=== PATIENT | female | born 1940 | race Caucasian/White ===

== ENCOUNTER 2021-01-26 16:30 | Emergency (ER) | payer BC, MEDICARE, OTHER ==
--- NOTE | 2021-01-26 17:30 | EDM.PDOC ---
ED HPI GENERAL MEDICAL PROBLEM - General Chief Complaint: Lower Extremity Injury/Pain Stated Complaint: KNEE PAIN Time Seen by Provider: 01/26/21 16:45 Source of Information: Reports: Patient History Limitations: Reports: No Limitations - History of Present Illness INITIAL COMMENTS - FREE TEXT/NARRATIVE: The patient presents with right knee pain. She was out walking this afternoon and stepped over a puddle and had pain to her right knee. She cannot bend her right knee now without intense pain. She has no pain any where else. She has a history of some pain in her knee in the past but nothing like this. Onset: Sudden Duration: Minutes: Location: Reports: Lower Extremity, Right (knee) Quality: Reports: Sharp Severity: Moderate Improves with: Reports: Immobilization Worsens with: Reports: Movement Context: Denies: Trauma Associated Symptoms: Reports: No Other Symptoms Right Knee Pain Score (Numeric/FACES): 7 - Related Data Allergies Allergy/AdvReac Type Severity Reaction Status Date / Time No Known Allergies Allergy Verified 01/26/21 16:39 Past Medical History Cardiovascular History: Reports: High Cholesterol, Hypertension Musculoskeletal History: Reports: Fracture Endocrine/Metabolic History: Reports: Hypothyroidism - Past Surgical History HEENT Surgical History: Reports: Oral Surgery Social & Family History - Tobacco Use Tobacco Use Status *Q: Unknown Ever Used Tobacco Review of Systems - Review of Systems Review Of Systems: See Below Constitutional: Reports: No Symptoms Eyes: Reports: No Symptoms Ears: Reports: No Symptoms Nose: Reports: No Symptoms Mouth/Throat: Reports: No Symptoms Respiratory: Reports: No Symptoms Cardiovascular: Reports: No Symptoms GI/Abdominal: Reports: No Symptoms Genitourinary: Reports: No Symptoms Musculoskeletal: Reports: Other (Right knee pain with motion) ED EXAM, GENERAL - Physical Exam Exam: See Below Exam Limited By: No Limitations General Appearance: Alert, No Apparent Distress Ears: Normal External Exam Nose: Normal Inspection Head: Atraumatic, Normocephalic Neck: Normal Inspection Respiratory/Chest: No Respiratory Distress Extremities: Other (No pain upon palpation to the right knee. Good sensation and pulses distally.) Course - Vital Signs Last Recorded V/S: Last Vital Signs Temp 97.9 F 01/26/21 16:36 Pulse 78 01/26/21 16:36 Resp 18 01/26/21 16:36 BP 183/68 H 01/26/21 16:36 Pulse Ox 99 01/26/21 16:36 - Orders/Labs/Meds Orders: Active Orders 24 hr Category Date Time Status Knee 3V Rt [CR] Stat Exams 01/26/21 16:51 Taken Durable Medical Equipment for Discharge [DME for Oth 01/26/21 17:46 Ordered Discharge] [COMM] Stat - Re-Assessments/Exams Free Text/Narrative Re-Assessment/Exam: 01/26/21 17:46 Her x-ray looks good. It just shows some mild arthritis. I was able to stress her ligaments and there is no instability. When I did try to bend it, she had pain to the posterior knee and inside the knee. I am concerned she may have a meniscus problem. I will get her in a knee immobilizer and have her follow up with Dr Fishman. Departure - Departure Time of Disposition: 17:50 Disposition: Home, Self-Care 01 Condition: Good Clinical Impression: Right knee pain Qualifiers: Chronicity: acute Qualified Code(s): M25.561 - Pain in right knee Knee sprain Qualifiers: Encounter type: initial encounter Involved ligament of knee: unspecified ligament Laterality: right Qualified Code(s): S83.91XA - Sprain of unspecified site of right knee, initial encounter - Discharge Information *PRESCRIPTION DRUG MONITORING PROGRAM REVIEWED*: Not Applicable *COPY OF PRESCRIPTION DRUG MONITORING REPORT IN PATIENT TIFFAYN: Not Applicable Referrals: Edwardo Fishman MD [Physician] - 1 Week Forms: ED Department Discharge Additional Instructions: Ice your knee for 15 minutes 3 times per day for 2 days. Take tylenol or motrin as needed for pain. Wear the knee immobilizer for support and to avoid further injury. Follow up with Dr Fishman within a week. Please return if you are worse. Sepsis Event Note (ED) - Evaluation Sepsis Screening Result: No Definite Risk - Focused Exam Vital Signs: Vital Signs Temp Pulse Resp BP Pulse Ox 01/26/21 16:36 97.9 F 78 18 183/68 H 99 - My Orders Last 24 Hours: My Active Orders 01/26/21 16:51 Knee 3V Rt [CR] Stat 01/26/21 17:46 Durable Medical Equipment for Discharge [DME for Discharge] [COMM] Stat - Assessment/Plan Last 24 Hours: My Active Orders 01/26/21 16:51 Knee 3V Rt [CR] Stat 12/12/21 17:46 Durable Medical Equipment for Discharge [DME for Discharge] [COMM] Stat
--- NOTE | 2021-01-26 18:26 | CR ---
Right knee: AP, lateral and sunrise patellar views of the right knee were obtained. Comparison: No prior right knee study is available. Narrowing is seen within the medial patellofemoral joint. Minimal narrowing is seen within the lateral joint. Chondrocalcinosis is noted within the medial and lateral menisci. Small spur is noted off the superior patella at the insertion of the quadriceps tendon. Small bony density is noted off the anterior and proximal tibia on the lateral view which is well corticated and felt to represent a likely old injury. No acute fracture or dislocation is seen. Impression: 1. Degenerative change as noted above. 2. Small bony density off the anterior and proximal tibia which is felt to represent an old injury. 3. No acute abnormality is appreciated. Diagnostic code #2
== END 2021-01-26 18:40 | disposition home or self-care (01) ==
LOC: JD.ED 16:30
DX: S83.91XA Sprain of unspecified site of right knee, initial encounter (principal); I10 Essential (primary) hypertension; W22.8XXA Striking against or struck by other objects, initial encounter; Y93.01 Activity, walking, marching and hiking
CPT/HCPCS: 73562-26-RT; 73562-RT; 99283-25; 99285

== ENCOUNTER 2022-05-28 16:50 | Emergency (ER) | payer MEDICARE | END 2022-05-28 21:23 | disposition home or self-care (01) | LOC: JD.ED 16:50 | DX: R41.0 Disorientation, unspecified (principal); I10 Essential (primary) hypertension | CPT/HCPCS: 36415; 70450; 70450-26; 80053; 81001; 85025; 86140; 99284; 99285 ==

== ENCOUNTER 2022-05-29 03:02 | Emergency (ER) | payer MEDICARE | END 2022-05-29 04:15 | disposition home or self-care (01) | LOC: JD.ED 03:02 | DX: R53.1 Weakness (principal); I10 Essential (primary) hypertension | CPT/HCPCS: 36415; 83735; 99283; 99284 ==

== ENCOUNTER 2022-09-13 02:05 | Emergency (ER) | payer MEDICARE ==
[2022-09-13] MEDS ORDERED: Sodium Chloride 0.9% 1,000 ML IV SCH (02:30)
[2022-09-13] MEDS ORDERED: Iopamidol 612 MG/ML 100 ML Bottle IVPUSH ONE (02:45)
== END 2022-09-13 03:45 | disposition home or self-care (01) ==
LOC: JD.ED 02:05
DX: S22.41XA Multiple fractures of ribs, right side, initial encounter for closed fracture (principal); I10 Essential (primary) hypertension; R29.6 Repeated falls; W18.30XA Fall on same level, unspecified, initial encounter; Y92.129 Unspecified place in nursing home as the place of occurrence of the external cause
CPT/HCPCS: 74177; 99284; J7030; Q9967; 99283

== ENCOUNTER 2022-09-13 23:18 | Emergency (ER) | payer BC, MEDICARE ==
[2022-09-14] MEDS ORDERED: Sodium Chloride 0.9% 1,000 ML IV SCH (01:00)
[2022-09-14 01:14] LABS: BASOPHILS ABSOLUTE AUTO 0.04 K/mm3 (0.01-0.08); BASOPHILS PERCENT AUTO 0.4 % (0.1-1.2); EOSINOPHILS ABSOLUTE AUTO 0.04 K/mm3 (0.04-0.36); EOSINOPHILS PERCENT AUTO 0.4 (0.7-5.8); HEMATOCRIT 40.9 % (34.1-44.9); HEMOGLOBIN 13.7 gm/dl (11.2-15.7); IMMATURE GRAN ABSOLUTE AUTO 0.05 K/mm3 (0.00-0.10); IMMATURE GRAN PERCENT AUTO 0.5 % (<=1.0); LYMPHOCYTES ABSOLUTE AUTO 1.21 K/mm3 (1.18-3.74); LYMPHOCYTES PERCENT AUTO 12.1 % (19.3-51.7); MEAN CORPUSCULAR HEMOGLOBIN 29.7 pg (25.6-32.2); MEAN CORPUSCULAR HGB CONC 33.5 g/dl (32.2-35.5); MEAN CORPUSCULAR VOLUME 88.7 fl (79.4-94.8); MEAN PLATELET VOLUME 10.2 fl (9.4-12.3); NEUTROPHILS ABSOLUTE AUTO 8.13 K/mm3 (1.56-6.13); NEUTROPHILS PERCENT AUTO 81.6 % (34.0-71.1); PLATELET COUNT,PLT 198 K/mm3 (182-369); RED BLOOD CELL COUNT 4.61 M/mm3 (3.98-5.22); WHITE BLOOD CELL COUNT,WBC 9.97 K/mm3 (3.98-10.04)
[2022-09-14 01:33] LABS: SLIDE REVIEW NORMAL SMEAR
[2022-09-14 01:35] LABS: A/G RATIO 0.9 (1-2); ALBUMIN 3.7 g/dl (3.4-5.0); ANION GAP 14.1 (5-15); BILIRUBIN TOTAL 0.6 mg/dL (0.2-1.0); BUN/CREATININE RATIO 13.1 (14-18); CALCIUM 8.9 mg/dL (8.5-10.1); CREATININE 1.3 mg/dL (0.55-1.02); EST CRCL DRUG DOSING (CG) 26.39 mL/min; POTASSIUM,K 4.1 mEq/L (3.5-5.1); PROTEIN TOTAL,TP 7.7 g/dl (6.4-8.2)
[2022-09-14] MEDS ORDERED: Iopamidol 612 MG/ML 100 ML Bottle IVPUSH ONE (01:57)
== END 2022-09-14 03:00 | disposition home or self-care (01) ==
LOC: JD.ED 23:18
DX: M54.50 Low back pain, unspecified (principal); E78.00 Pure hypercholesterolemia, unspecified; I10 Essential (primary) hypertension; E03.9 Hypothyroidism, unspecified; Z79.82 Long term (current) use of aspirin; Z79.899 Other long term (current) drug therapy; W18.11XA Fall from or off toilet without subsequent striking against object, initial encounter; Y92.091 Bathroom in other non-institutional residence as the place of occurrence of the external cause
CPT/HCPCS: 36415; 74177; 80053; 85025; 99284; J7030; Q9967

== ENCOUNTER 2023-11-19 10:46 | Inpatient (IN) | payer MEDICARE ==
[2023-11-19 11:20] LABS: BASOPHILS PERCENT AUTO 0.4 % (0.0-1.0); EOSINOPHILS PERCENT AUTO 0.4 % (0.0-6.0); HEMATOCRIT 40.1 % (37.0-47.0); HEMOGLOBIN 13.8 gm/dl (12.0-16.0); IMMATURE GRAN ABSOLUTE AUTO 0.01 K/mm3 (0.00-0.05); IMMATURE GRAN PERCENT AUTO 0.1 % (0.0-0.4); LYMPHOCYTES ABSOLUTE AUTO 1.2 K/mm3 (1.0-4.8); MEAN CORPUSCULAR HEMOGLOBIN 30.1 pg (28.0-32.0); MEAN CORPUSCULAR HGB CONC 34.4 g/dl (32.0-36.0); MEAN CORPUSCULAR VOLUME 87.6 fl (83.0-99.0); MEAN PLATELET VOLUME 9.9 fl (9.4-12.3); MONOCYTES ABSOLUTE AUTO 0.6 K/mm3 (0.0-0.8); MONOCYTES PERCENT AUTO 6.8 % (0.0-8.0); NEUTROPHILS ABSOLUTE AUTO 6.4 K/mm3 (1.8-7.7); NEUTROPHILS PERCENT AUTO 77.3 % (41.0-71.0); PLATELET COUNT,PLT 166 K/mm3 (150-400); RED BLOOD CELL COUNT 4.58 M/mm3 (4.10-5.30); WHITE BLOOD CELL COUNT,WBC 8.22 K/mm3 (3.9-11.3)
[2023-11-19] MEDS: Sodium Chloride 0.9% 100 ML IV SCH (11:22)
[2023-11-19] MEDS: Iopamidol 755 Mg/ML 100 ML Bottle IVPUSH ONE (11:22)
[2023-11-19] MEDS: Sodium Chloride 0.9% 10 ML Syringe FLUSH ONE (11:23)
[2023-11-19 11:42] LABS: A/G RATIO 0.9 (1-2); ALBUMIN 3.6 g/dl (3.4-5.0); BILIRUBIN TOTAL 0.9 mg/dL (0.2-1.0); BUN/CREATININE RATIO 22.5 (14-18); CALCIUM 9.3 mg/dL (8.5-10.1); CREATININE 1.2 mg/dL (0.55-1.02); EST CRCL DRUG DOSING (CG) 26.8 mL/min; PROTEIN TOTAL,TP 7.7 g/dl (6.4-8.2)
[2023-11-19 12:01] LABS: INR 1.13; PROTHROMBIN TIME 11.9 SECONDS (9.7-12.0)
[2023-11-19 12:02] LABS: PTT,PARTIAL THROMBOPLSTIN TIME 27.1 SECONDS (21.7-31.4)
[2023-11-19] MEDS: Aspirin 325 MG Tab.EC PO ONE (12:54)
[2023-11-19 15:07] LABS: TSH 0.08 uIU/mL (0.358-3.74)
[2023-11-19 16:04] LABS: T4 FREE 1.56 ng/dL (0.76-1.46)
[2023-11-19] MEDS: Clopidogrel 75 MG Tab PO ONE (16:16)
[2023-11-19] MEDS: Polyethylene Glycol 3350 Powder 17 GM Packet PO SCH (22:38)
[2023-11-19] MEDS: Rosuvastatin 10 MG Tab PO SCH (22:38)
[2023-11-19] MEDS: Sodium Chloride 0.9% 1,000 ML IV SCH (22:38)
[2023-11-20 06:06] LABS: HEMATOCRIT 40.1 % (37.0-47.0); HEMOGLOBIN 13.6 gm/dl (12.0-16.0); MEAN CORPUSCULAR HEMOGLOBIN 29.2 pg (28.0-32.0); MEAN CORPUSCULAR HGB CONC 33.9 g/dl (32.0-36.0); MEAN CORPUSCULAR VOLUME 86.2 fl (83.0-99.0); MEAN PLATELET VOLUME 9.9 fl (9.4-12.3); PLATELET COUNT,PLT 159 K/mm3 (150-400); RED BLOOD CELL COUNT 4.65 M/mm3 (4.10-5.30); WHITE BLOOD CELL COUNT,WBC 7.69 K/mm3 (3.9-11.3)
[2023-11-20 06:27] LABS: ANION GAP 12.7 (5-15); CALCIUM 8.8 mg/dL (8.5-10.1); EST CRCL DRUG DOSING (CG) 32.16 mL/min; POTASSIUM,K 3.7 mEq/L (3.5-5.1)
[2023-11-20 07:58] LABS: HEMOGLOBIN A1C 6.2 %
[2023-11-20] MEDS: Aspirin 81 MG Tab.EC PO SCH (10:12)
[2023-11-20] MEDS: Enoxaparin 30 MG/0.3 ML Syringe SUBCUT SCH (10:12)
[2023-11-20] MEDS: Clopidogrel 75 MG Tab PO SCH (10:12)
[2023-11-20] MEDS: Sertraline 25 MG Tab PO SCH (10:12)
[2023-11-20] MEDS: Sodium Chloride 0.9% 1,000 ML IV SCH (12:57)
[2023-11-21 05:38] LABS: HEMATOCRIT 34.7 % (37.0-47.0); MEAN CORPUSCULAR HEMOGLOBIN 29.5 pg (28.0-32.0); MEAN CORPUSCULAR HGB CONC 33.1 g/dl (32.0-36.0); MEAN PLATELET VOLUME 10.2 fl (9.4-12.3); PLATELET COUNT,PLT 136 K/mm3 (150-400); WHITE BLOOD CELL COUNT,WBC 6.41 K/mm3 (3.9-11.3)
[2023-11-21 05:44] LABS: CREATININE 0.6 mg/dL (0.55-1.02); EST CRCL DRUG DOSING (CG) 53.61 mL/min
[2023-11-21] MEDS: Levothyroxine 75 MCG Tab PO SCH (05:49)
[2023-11-21 05:52] LABS: HEMOGLOBIN 11.5 gm/dl (12.0-16.0)
[2023-11-21 06:34] LABS: ANION GAP 11.8 (5-15)
[2023-11-21 06:48] LABS: CALCIUM 6.4 mg/dL (8.5-10.1); POTASSIUM,K 2.8 mEq/L (3.5-5.1)
[2023-11-21] MEDS: Potassium Chloride 10 MEQ in Premix Bag 1 BAG IV SCH (08:17)
[2023-11-21] MEDS: Potassium Chloride 20 MEQ Tab.ER PO ONE ×2 (08:19→22:08)
[2023-11-21] MEDS: Magnesium Sulfate/Water Premix 4 GM in Premix Bag 1 BAG IV ONE (18:51)
[2023-11-22 05:56] LABS: BASOPHILS PERCENT AUTO 0.5 % (0.0-1.0); EOSINOPHILS ABSOLUTE AUTO 0.1 K/mm3 (0.0-0.4); EOSINOPHILS PERCENT AUTO 1.4 % (0.0-6.0); HEMATOCRIT 42.3 % (37.0-47.0); IMMATURE GRAN ABSOLUTE AUTO 0.02 K/mm3 (0.00-0.05); IMMATURE GRAN PERCENT AUTO 0.2 % (0.0-0.4); LYMPHOCYTES ABSOLUTE AUTO 1.9 K/mm3 (1.0-4.8); LYMPHOCYTES PERCENT AUTO 22.5 % (24.0-44.0); MEAN CORPUSCULAR HEMOGLOBIN 29.8 pg (28.0-32.0); MEAN CORPUSCULAR HGB CONC 33.8 g/dl (32.0-36.0); MEAN CORPUSCULAR VOLUME 88.1 fl (83.0-99.0); MEAN PLATELET VOLUME 10.1 fl (9.4-12.3); MONOCYTES ABSOLUTE AUTO 0.9 K/mm3 (0.0-0.8); MONOCYTES PERCENT AUTO 10.4 % (0.0-8.0); NEUTROPHILS ABSOLUTE AUTO 5.4 K/mm3 (1.8-7.7); PLATELET COUNT,PLT 175 K/mm3 (150-400); WHITE BLOOD CELL COUNT,WBC 8.34 K/mm3 (3.9-11.3)
[2023-11-22 06:07] LABS: HEMOGLOBIN 14.3 gm/dl (12.0-16.0)
[2023-11-22 06:08] LABS: BUN/CREATININE RATIO 12.2 (14-18); CREATININE 0.9 mg/dL (0.55-1.02); EST CRCL DRUG DOSING (CG) 35.74 mL/min; MAGNESIUM 2.4 mg/dL (1.8-2.4)
[2023-11-22 06:19] LABS: ANION GAP 15.4 (5-15)
[2023-11-22 06:20] LABS: POTASSIUM,K 4.4 mEq/L (3.5-5.1)
[2023-11-22] MEDS ORDERED: Levothyroxine 100 MCG Tab PO SCH (08:30)
[2023-11-22] MEDS: amLODIPine 5 MG Tab PO SCH (08:57)
[2023-11-22] MEDS: Spironolactone 25 MG Tab PO SCH (08:57)
[2023-11-22] MEDS: Chlorthalidone 25 MG Tab PO SCH (08:58)
[2023-11-23 06:53] LABS: HEMATOCRIT 41.7 % (37.0-47.0); HEMOGLOBIN 14.1 gm/dl (12.0-16.0); MEAN CORPUSCULAR HEMOGLOBIN 29.3 pg (28.0-32.0); MEAN CORPUSCULAR HGB CONC 33.8 g/dl (32.0-36.0); MEAN CORPUSCULAR VOLUME 86.5 fl (83.0-99.0); MEAN PLATELET VOLUME 10.1 fl (9.4-12.3); PLATELET COUNT,PLT 168 K/mm3 (150-400); RED BLOOD CELL COUNT 4.82 M/mm3 (4.10-5.30); WHITE BLOOD CELL COUNT,WBC 8.63 K/mm3 (3.9-11.3)
[2023-11-23 07:18] LABS: ANION GAP 12.2 (5-15); BUN/CREATININE RATIO 15.6 (14-18); CALCIUM 8.9 mg/dL (8.5-10.1); CREATININE 0.9 mg/dL (0.55-1.02); EST CRCL DRUG DOSING (CG) 35.74 mL/min; MAGNESIUM 2.1 mg/dL (1.8-2.4); POTASSIUM,K 4.2 mEq/L (3.5-5.1)
[2023-11-23] MEDS ORDERED: Levothyroxine 75 MCG Tab PO SCH (08:29)
[2023-11-23] MEDS: Enoxaparin 40 MG/0.4 ML Syringe SUBCUT SCH (08:56)
[2023-11-24 06:49] LABS: HEMATOCRIT 41.7 % (37.0-47.0); HEMOGLOBIN 14.3 gm/dl (12.0-16.0); MEAN CORPUSCULAR HEMOGLOBIN 29.6 pg (28.0-32.0); MEAN CORPUSCULAR HGB CONC 34.3 g/dl (32.0-36.0); MEAN CORPUSCULAR VOLUME 86.3 fl (83.0-99.0); MEAN PLATELET VOLUME 10.1 fl (9.4-12.3); PLATELET COUNT,PLT 172 K/mm3 (150-400); RED BLOOD CELL COUNT 4.83 M/mm3 (4.10-5.30); WHITE BLOOD CELL COUNT,WBC 9.55 K/mm3 (3.9-11.3)
[2023-11-24 07:09] LABS: CALCIUM 9.2 mg/dL (8.5-10.1); EST CRCL DRUG DOSING (CG) 32.16 mL/min
[2023-11-26] MEDS: Docusate Sodium 100 MG Cap PO SCH (09:10)
[2023-11-26] MEDS: Acetaminophen 325 MG Tab PO PRN (09:18)
[2023-11-28] MEDS ORDERED: amLODIPine 5 MG Tab PO SCH (09:00)
[2023-11-28] MEDS: amLODIPine 5 MG Tab PO SCH (09:03)
== END 2023-12-01 08:12 | DRG 69 ==
LOC: JD.ED 10:46 → JD.MS 14:26 → UNDOADMIN 14:26
PROVIDERS: ADMIT Family Medicine; ATTEND Family Medicine
DX: I63.9 Cerebral infarction, unspecified (principal); G45.9 Transient cerebral ischemic attack, unspecified; E05.80 Other thyrotoxicosis without thyrotoxic crisis or storm; E78.00 Pure hypercholesterolemia, unspecified; I10 Essential (primary) hypertension; F32.A Depression, unspecified; E03.9 Hypothyroidism, unspecified; H54.7 Unspecified visual loss; Z66 Do not resuscitate; T38.1X5A Adverse effect of thyroid hormones and substitutes, initial encounter; E87.6 Hypokalemia; E83.42 Hypomagnesemia; R00.1 Bradycardia, unspecified; Z79.82 Long term (current) use of aspirin; Z79.899 Other long term (current) drug therapy; Z87.19 Personal history of other diseases of the digestive system; Z87.81 Personal history of (healed) traumatic fracture; Z98.49 Cataract extraction status, unspecified eye; Z98.890 Other specified postprocedural states
CPT/HCPCS: 36415; 70450; 70496; 70498; 80053; 82607; 84439; 84443; 84484; 85025; 85610; 85730; 93005; 99285; A9270; J3490 ×2; Q9967; 70551; 70551-26; 80048; 80061; 83036; 83735; 85027; 87641; 93010; 93306; 97162-GP; 97530-GP; 99223; 99231; 99232; 99233; 99239; J1650; J3475; J3480; J7030; U0002